=== PATIENT | female | born 1970 | race Caucasian/White ===

== ENCOUNTER 2018-04-22 23:39 | Emergency (ER) | payer OTHER, SELFPAY ==
--- NOTE | 2018-04-23 00:01 | ER ---
Nurse's Notes [facility] Name: Sammie Lux Age: 47 yrs Sex: Female : 1970 Arrival Date: 04/22/2018 Time: 23:40 Bed 14 Private MD: Nickie Lau F Diagnosis: Radiculopathy, lumbar region Presentation: 04/22 23:49 Presenting complaint: Patient states: I've had lower back pain that radiates down my tl2 right leg for 2 months and haven't been to the doctor. I also have this rash on my left leg. Transition of care: patient was not received from another setting of care. Onset of symptoms was January 2018. Risk Assessment: Do you want to hurt yourself or someone else? Patient reports no desire to harm self or others. Initial Sepsis Screen: Does the patient meet any 2 criteria? No. Patient's initial sepsis screen is negative. Does the patient have a suspected source of infection? No. Patient's initial sepsis screen is negative. Care prior to arrival: None. 23:49 Method Of Arrival: Ambulatory tl2 23:49 Acuity: AMIE 4 tl2 Triage Assessment: 23:51 General: Appears in no apparent distress. uncomfortable, Behavior is calm, cooperative, tl2 appropriate for age. Pain: Complains of pain in left low back and right low back Pain radiates to right leg. Musculoskeletal: Circulation, motion, and sensation intact. 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 - Social history:: Smoking status: Patient/guardian denies using tobacco. - Ebola Screening: : No symptoms or risks identified at this time. - Family history:: not pertinent. - Hospitalizations: : No recent hospitalization is reported. Screenin:52 Abuse screen: Denies threats or abuse. Nutritional screening: No deficits noted. tl2 Tuberculosis screening: No symptoms or risk factors identified. Fall Risk None identified. Assessment: 23:50 General: Appears in no apparent distress. well developed, well nourished, Behavior is rk2 calm, cooperative. 23:50 Neuro: Level of Consciousness is alert, obeys commands, Oriented to person, place, rk2 time, situation. Respiratory: Airway is patent Respiratory effort is even, unlabored, Respiratory pattern is regular, symmetrical. Derm: Skin is pink, warm \T\ dry. Rash noted that is on right leg. Vital Signs: 23:51 BP 150 / 96; Pulse 71; Resp 18; Temp 98(O); Pulse Ox 97% on R/A; Weight 68.04 kg; tl2 Height 5 ft. 0 in. (152.40 cm); Pain 8/10; 23:51 Body Mass Index 29.29 (68.04 kg, 152.40 cm) tl2 ED Course: 23:40 Patient arrived in ED. am2 23:40 Nickie Lau MD is Private Physician. am2 23:42 Gustavo Cody MD is Attending Physician. rn 23:50 Triage completed. tl2 23:51 Arm band placed on right wrist. tl2 23:52 Patient has correct armband on for positive identification. Bed in low position. Call tl2 light in reach. Side rails up X 1. 05/31 00:06 Camryn Osorio, MARIA is Primary Nurse. rk2 00:08 No provider procedures requiring assistance completed. Patient did not have IV access rk2 during this emergency room visit. Administered Medications: No medications were administered Outcome: 00:00 Discharge ordered by . rn 00:08 Discharged to home rk2 00:08 Discharged to home ambulatory. 00:08 Condition: good 00:08 Discharge instructions given to patient, Prescriptions given X 3. 00:09 Patient left the ED. rk2 Signatures: Gustavo Cody MD MD rn Knox, Taylor, RN RN tl2 Daily Jc 2 Camryn Osorio RN RN rk2
--- NOTE | 2018-04-23 00:01 | EDPHYS ---
Physician Documentation [facility] Name: Sammie Lux Age: 47 yrs Sex: Female : 1970 Arrival Date: 04/22/2018 Time: 23:40 Bed 14 Private MD: Nickie Lau F ED Physician Gustavo Cody HPI: 04/22 23:57 This 47 yrs old Female presents to ER via Ambulatory with complaints of Back rn Pain. 23:57 The patient presents with pain that is chronic. The symptoms are located in the low rn back. Onset: The symptoms/episode began/occurred 5 month(s) ago. The pain radiates to the right leg. Modifying factors: The patient symptoms are alleviated by OTC meds, the patient symptoms are aggravated by any movement, bending. Severity of symptoms: At their worst the symptoms were moderate, in the emergency department the symptoms have improved. The patient has experienced similar episodes in the past. Denies new injury, has xray order from November and wants to get it done now, no new trauma, + radiates down right leg, no bowel/bladder issues. . 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 - Social history:: Smoking status: Patient/guardian denies using tobacco. - Ebola Screening: : No symptoms or risks identified at this time. - Family history:: not pertinent. - Hospitalizations: : No recent hospitalization is reported. ROS: 23:57 Constitutional: Negative for fever, chills, and weight loss, Eyes: Negative for injury, rn pain, redness, and discharge, Cardiovascular: Negative for chest pain, palpitations, and edema, Respiratory: Negative for shortness of breath, cough, wheezing, and pleuritic chest pain, Abdomen/GI: Negative for abdominal pain, nausea, vomiting, diarrhea, and constipation, Back: + low back pain MS/Extremity: Negative for injury and deformity, Skin: Negative for injury, rash, and discoloration, Neuro: Negative for headache, weakness, numbness, tingling, and seizure. Exam: 23:57 Constitutional: This is a well developed, well nourished patient who is awake, alert, rn and in no acute distress. Back: No spinal tenderness. No costovertebral tenderness. Full range of motion. MS/ Extremity: Pulses equal, no cyanosis. Neurovascular intact. Full, normal range of motion. Equal circumference. Neuro: Awake and alert, GCS 15, oriented to person, place, time, and situation. Cranial nerves II-XII grossly intact. Motor strength 5/5 in all extremities. Sensory grossly intact. Cerebellar exam normal. Normal gait. Vital Signs: 23:51 BP 150 / 96; Pulse 71; Resp 18; Temp 98(O); Pulse Ox 97% on R/A; Weight 68.04 kg; tl2 Height 5 ft. 0 in. (152.40 cm); Pain 8/10; 23:51 Body Mass Index 29.29 (68.04 kg, 152.40 cm) tl2 MDM: 23:42 Patient medically screened. rn 23:57 Differential diagnosis: arthritis, chronic back pain, Osteoarthritis radiculopathy. rn Data reviewed: vital signs, nurses notes, and as a result, I will discharge patient. Counseling: I had a detailed discussion with the patient and/or guardian regarding: the historical points, exam findings, and any diagnostic results supporting the discharge/admit diagnosis, the need for outpatient follow up, to return to the emergency department if symptoms worsen or persist or if there are any questions or concerns that arise at home. Special discussion: I discussed with the patient/guardian in detail that at this point there is no indication for admission to the hospital. It is understood, however, that if the symptoms persist or worsen the patient needs to return immediately for re-evaluation. Further emergent ED testing is not indicated at this point in time. I discussed with the patient/guardian in detail the need to arrange with the PCP or specialist further outpatient testing, MRI. Administered Medications: No medications were administered Disposition: 04/23/18 00:00 Discharged to Home. Impression: Radiculopathy, lumbar region. - Condition is Stable. - Discharge Instructions: Lumbosacral Radiculopathy. - Prescriptions for Medrol (Efraín) 4 mg Oral Tablets, Dose Pack - take 1 tablet by ORAL route as directed - follow package instructions; 1 packet. Cyclobenzaprine 5 mg Oral Tablet - take 1 tablet by ORAL route 3 times per day As needed; 15 tablet. Bactroban 2 % Topical Ointment - Apply to affected area 1 application by TOPICAL route every 12 hours; 30 gram. - Medication Reconciliation Form, Thank You Letter, Antibiotic Education, Prescription Opioid Use form. - Follow up: Private Physician; When: As needed; Reason: Recheck today's complaints, Re-evaluation by your physician. - Problem is chronic. - Symptoms have improved. Signatures: Gustavo Cody MD MD rn Laura Souza RN RN tl2 Camryn Osorio RN RN rk2 Corrections: (The following items were deleted from the chart) 04/23 00:09 00:00 04/23/2018 00:00 Discharged to Home. Impression: Radiculopathy, lumbar region. rk2 Condition is Stable. Forms are Medication Reconciliation Form, Thank You Letter, Antibiotic Education, Prescription Opioid Use. Follow up: Private Physician; When: As needed; Reason: Recheck today's complaints, Re-evaluation by your physician. Problem is chronic. Symptoms have improved. rn
== END 2018-04-23 00:09 | disposition home or self-care (01) ==
LOC: ER 23:39
DX: M54.16 Radiculopathy, lumbar region (principal)
CPT/HCPCS: 99282

== ENCOUNTER 2023-03-28 18:43 | Emergency (ER) | payer OTHER ==
--- OUTSIDE RECORDS SUMMARY | 2023-03-28 18:46 | XMS REPORT | Continuity of Care Document ---
:1970 Author Organization Formerly [facility] t Address [address] [facility] [address] [place] [address] Care Team Providers Name Role Phone RACHEL SANCHEZ Primary Care Physician Unavailable SRAVANTHI BARBER Attending Clinician Unavailable RADHA HEIN Attending Clinician Unavailable Kiley Davalos Attending Clinician KILEY WOLFE Attending Clinician Unavailable Doctor Unassigned, [place] Attending Clinician Unavailable Radha Hein MD Attending Clinician Chiquis Goyal RN Attending Clinician Unavailable Only, Ang Db Test Attending Clinician Unavailable Irvin Galindo MD Attending Clinician IRVIN GALINDO Attending Clinician Unavailable Celia Parker PA-C Attending Clinician CELIA PARKER Attending Clinician Unavailable KATE AMOS Attending Clinician Unavailable Payers Payer Name Policy Type Policy Number Effective Date Expiration Date S [employer] [id number] 2019 NON-CONTRACT 00:00:00 GENERIC ALL SAVERS [id number] 2021 00:00:00 LETICIA O [id number] 2018 00:00:00 Problems Condition Condition Condition Status Onset Resolution Last Treating Co mments Source Name Details Category Date Date Treatment Clinician Date Ascending Ascending Disease Active Uni vers aorta aorta 2-16 [place] Primary Primary Disease Active Univers hypertensi hypertensi 2-16 it y of on on 00:00: [place] [facility] Chest Chest Disease Active Univers pain, pain, 2-16 ity of unspecifie unspecifie [place] type d type Medical Branch Irregular Irregular Disease Active Uni vers menstrual menstrual 6 ity of cycle cycle 00:00: Medical Branch Overweight Overweight Disease Active Overview : Univers 04-04 Formattin ity of 00:00: g of this note Medical might be Branch different from the original. 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 HSIL with colpo and biopsy- ROMERO II/ ROMERO II 2008LEEP procedure completed 05/20/2014 Needs annual pap smears DUB DUB Disease Active Overview: Univer s (dysfuncti (dysfuncti 02-22 Formattin ity of onal onal 00:00: g of this [place] uterine uterine note Medical bleeding) bleeding) might be Br anch different from the original. Prev. Referred for EMB by laura amador pt.did not follow up HTN HTN Disease Active Univers (hypertens (hypertens 4- it y of ion) ion) 00:00: Medical Branch Generalize Generalize Disease Active U nivers d anxiety d anxiety - ity of disorder disorder 00:00: Medical Branch Tubal Tubal Disease Active Overview: Univer s ligation ligation 02-22 Formattin ity of evaluation evaluation 00:00: g of this note Medical might be Branch different from the original. REcords received. Completed in 1989 Pain Pain Disease Active Univers pelvic pelvic 02-22 ity of 00:00: [place] 00 [facility] Branch Allergies, Adverse Reactions, Alerts Allergy Allergy Status Severity Reaction(s) Onset Inactive Treating Comm ents Source Name Type Date Date Clinician NO KNOWN Drug Active Univers ALLERGIE Class ity of S [facility] Social History Social Habit Start Date Stop Date Quantity Comments Source History SDOH University o f Alcohol Frequency [place] [facility] History SDOH University o f Alcohol Std Drinks [place] [facility] [place] History SDNV University o f Alcohol Binge [place] [facility] [place] Exposure to 2022-04-04 2022-04-14 Not sure [facility] SARS-CoV-2 (event) 00:00:00 18:37:00 [facility] Alcohol intake 2022-04-14 2022-04-14 0 /d University of 00:00:00 00:00:00 [facility] Alcohol Comment 2014-07-07 2014-07-07 on occassion Univers ity of 00:00:00 00:00:00 [facility] Sex Ass[birth year] At [birth year] Universit y of 00:00:00 00:00:00 [facility] Smoking Status Start Date Stop Date Source Never smoker [facility] Medications Ordered Filled Start Stop Current Ordering Indication Dosage Frequency Signature Comments Components Source Medication Medication Date Date Medication? Clinician (SIG) Name Name ketorolac No 30mg 30 mg, Unive rs (TORADOL) 04-15 Intramuscu ity of injection 01:00: 23:58 lar, ONCE, [place] 30 mg 00 :00 1 dose, On [facility] 04/14/22 at 2000, Routine cyclobenzap No 5mg 5 mg, Univ ers rine 04-14 Oral, ity of (FLEXERIL) 23:48: 23:58 ONCE, 1 [place] as tablet 5 mg 00 :00 dose, On [facility] 04/14/22 at 1900, Routine cyclobenzap Yes [id number] 5mg Take 1 Univers rine 5 mg - tablet by ity o f tablet 00:00: mouth [place] 00 every 8 Medical (eight) Branch hours as needed for Muscle Spasms. cyclobenzap 2021- No [id number] 5mg Take 1 Univers rine 5 mg 5-22 05-22 tablet by ity of tablet 00:00: 00:00 mouth [place] 00 :00 every 8 Medical (eight) Branch hours as needed for Muscle Spasms. hydroCHLORO 2021-0 Yes 12.5mg Take 12.5 Univers thiazide 2-16 mg by ity of 12.5 mg 14:04: mouth [place] capsule 44 daily. Medical Branch busPIRone 2021-0 Yes 15mg Take 15 mg Un anamaria 15 mg 2-16 by mouth 2 ity of tablet 14:04: (two) [place] 44 times Medical daily. Branch OMEPRAZOLE 2021-0 Yes Take by Univ ers ORAL 2-16 mouth. ity of 14:04: [place] [address] Medical Branch hydroCHLORO 2021-0 Yes 12.5mg Take 12.5 Univers thiazide 2-16 mg by ity of 12.5 mg 14:04: mouth [place] capsule 44 daily. Medical Branch busPIRone 2021-0 Yes 15mg Take 15 mg Un anamaria 15 mg 2-16 by mouth 2 ity of tablet 14:04: (two) [place] 44 times Medical daily. Branch OMEPRAZOLE 2021-0 Yes Take by Univ ers ORAL 2-16 mouth. ity of 14:04: [place] [address] Medical Branch hydroCHLORO 2021-0 Yes 12.5mg Take 12.5 Univers thiazide 2-16 mg by ity of 12.5 mg 14:04: mouth [place] capsule 44 daily. Medical Branch busPIRone 2021-0 Yes 15mg Take 15 mg Un anamaria 15 mg 2-16 by mouth 2 ity of tablet 14:04: (two) [place] 44 times Medical daily. Branch OMEPRAZOLE 2021-0 Yes Take by Univ ers ORAL 2-16 mouth. ity of 14:04: [place] [address] Medical Branch mupirocin 2 2020-0 Yes [id number] Apply to Univers % ointment 1-10 area(s) 3 ity of 00:00: (three) [place] 00 times Medical daily. Branch mupirocin 2 2020-0 Yes [id number] Apply to Univers % ointment 1-10 area(s) 3 ity of 00:00: (three) [place] 00 times Medical daily. Branch mupirocin 2 2020-0 Yes [id number] Apply to Univers % ointment 1-10 area(s) 3 ity of 00:00: (three) [place] 00 times Medical daily. Branch amLODIPine 2020-0 Yes 10mg Take 10 mg U nivers 10 mg 2-28 by mouth ity of tablet 14:13: daily. [place] [address] Medical Branch hydrALAZINE 2020-0 Yes 10mg Take 10 mg Univers 10 mg 2-28 by mouth ity of tablet 14:13: every 6 [place] [address] (six) Medical hours. Branch metoprolol 2020-0 Yes 50mg Take 50 mg U nivers succinate 2-28 by mouth ity of XL 50 mg 24 14:13: [place]. [place] hr tablet Medical Branch amLODIPine 2020-0 Yes 10mg Take 10 mg U nivers 10 mg 2-28 by mouth ity of tablet 14:13: daily. [address] Branch hydrALAZINE 2020-0 Yes 10mg Take 10 mg Univers 10 mg 2-28 by mouth ity of tablet 14:13: every 6 [place] [address] (six) Medical hours. Branch metoprolol 2020-0 Yes 50mg Take 50 mg U nivers succinate 2-28 by mouth ity of XL 50 mg 24 14:13: daily. [facility] [place] [facility] hr tablet Medical Branch amLODIPine 2020-0 Yes 10mg Take 10 mg U nivers 10 mg 2-28 by mouth ity of tablet 14:13: daily. [address] Branch hydrALAZINE 2020-0 Yes 10mg Take 10 mg Univers 10 mg 2-28 by mouth ity of tablet 14:13: every 6 [place] [address] (six) Medical hours. Branch metoprolol 2020-0 Yes 50mg Take 50 mg U nivers succinate 2-28 by mouth ity of XL 50 mg 24 14:13: [place]. [place] tablet 11 Medical Branch ondansetron 2019-0 Yes [id number] 4mg Take 1 Univers (ZOFRAN) 4 1-29 tablet by ity of mg tablet 00:00: mouth [place] [id number] every 8 Medical (eight) Branch hours as needed for Nausea and Vomiting (N/V). traMADOL 2019-0 Yes [id number] 50mg Take 1 Uni vers (ULTRAM) 50 1-29 tablet by ity of mg tablet 00:00: mouth [place] 00 every 6 Medical (six) Branch hours as needed for Pain (scale 7-10). pantoprazol 2019-0 Yes [id number] 40mg Take 1 Univers e 1-29 tablet by ity of (PROTONIX) 00:00: mouth [place] 40 mg EC 00 daily. Medical tablet Branch ondansetron Yes [id number] 4mg Take 1 Univers (ZOFRAN) 4 1-29 tablet by ity of mg tablet 00:00: mouth [place] 00 every 8 Medical (eight) Branch hours as needed for Nausea and Vomiting (N/V). traMADOL Yes [id number] 50mg Take 1 Uni vers (ULTRAM) 50 1-29 tablet by ity of mg tablet 00:00: mouth [place] 00 every 6 Medical (six) Branch hours as needed for Pain (scale 7-10). pantoprazol Yes [id number] 40mg Take 1 Univers e 1-29 tablet by ity of (PROTONIX) 00:00: mouth [place] 40 mg EC 00 daily. Medical tablet Branch ondansetron Yes [id number] 4mg Take 1 Univers (ZOFRAN) 4 1-29 tablet by ity of mg tablet 00:00: mouth [place] 00 every 8 Medical (eight) Branch hours as needed for Nausea and Vomiting (N/V). pantoprazol Yes [id number] 40mg Take 1 Univers e 1-29 tablet by ity of (PROTONIX) 00:00: mouth [place] 40 mg EC 00 daily. Medical tablet Branch traMADOL 2021- No [id number] 50mg Take 1 Un anamaria (ULTRAM) 50 1-29 05-22 tablet by it y of mg tablet 00:00: 00:00 mouth [place] 00 :00 every 6 Medical (six) Branch hours as needed for Pain (scale 7-10). traMADOL Yes 50mg Take 1 Univers (ULTRAM) 50 9-19 tablet by ity of mg tablet 00:00: mouth [place] 00 every 6 Medical (six) Branch hours as needed for Pain (scale 4-6). traMADOL 2017-0 Yes 50mg Take 1 Univers (ULTRAM) 50 9-19 tablet by ity of mg tablet 00:00: mouth [place] 00 every 6 Medical (six) Branch hours as needed for Pain (scale 4-6). traMADOL 2017-0 2021- No 50mg Take 1 Univer s (ULTRAM) 50 9-19 05-22 tablet by it y of mg tablet 00:00: 00:00 mouth [place] 00 :00 every 6 Medical (six) Branch hours as needed for Pain (scale 4-6). Immunizations Ordered Filled Immunization Date Status Comments Sour e Immunization Name Name Influenza Virus 2019-08-24 Completed Universit y of Vaccine Quad .5 mL 00:00:00 [place] Medical IM 6+ MO Branch Influenza Virus 2019-08-24 Completed Universit y of Vaccine Quad .5 mL 00:00:00 [place] [facility] IM 6+ MO Branch Influenza Virus 2019-08-24 Completed Universit y of Vaccine Quad .5 mL 00:00:00 [place] Medical IM 6+ MO Branch TDAP 2014-02-22 Completed University 00:00:00 [facility] TDAP 2014-02-22 Completed University 00:00:00 [facility] TDAP 2014-02-22 Completed [facility] 00:00:00 [facility] Vital Signs Vital Name Observation Time Observation Value Comments Source Systolic blood 2022-04-14 23:38:00 136 mm[Hg] Univer sity of pressure [facility] Diastolic blood 2022-04-14 23:38:00 84 mm[Hg] Unive rsity of [facility] Heart rate 2022-04-14 23:38:00 62 /min [facility] Body temperature 2022-04-14 23:38:00 36.94 K[facility] Respiratory rate 2022-04-14 23:38:00 18 /min [facility] Body height 2022-04-14 23:38:00 154.9 cm [facility] Body weight 2022-04-14 23:38:00 70.308 kg [facility] BMI 2022-04-14 23:38:00 29.29 kg/m2 [facility] Oxygen saturation in 2022-04-14 23:38:00 97 /min [facility] Arterial blood by [facility] Pulse oximetry Branch Systolic blood 2022-01-09 20:01:00 113 mm[Hg] Univer sity of pressure [facility] Diastolic blood 2022-01-09 20:01:00 67 mm[Hg] Unive rsity of pressure [facility] Heart rate 2022-01-09 20:01:00 77 /min [facility] Body height 2022-01-09 20:01:00 154.9 cm [facility] Body weight 2022-01-09 20:01:00 67.586 kg [facility] BMI 2022-01-09 20:01:00 28.15 kg/m2 [facility] Oxygen saturation in 2022-01-09 20:01:00 97 /min [facility] Arterial blood by [facility] Pulse oximetry Branch Procedures Procedure Date / Time Performed Performing Clinician [facility] e CONSENT/REFUSAL FOR 2022-04-14 23:27:17 Doctor Unassigned, No Un [facility] DIAGNOSIS AND Name [facility] TREATMENT EKG-12 LEAD 2022-01-09 20:07:54 Radha Hein [facility] Encounters Start End Encounter Admission Attending Care Care Encounter Source Date/Time Date/Time Type Type Clinicians Facility Department ID 2021-09-22 Emergency [facility] [id number] [facility]21 Emergency [facility] [id number] Univers 10:34:40 [facility] 2023-02-28 2023-02-28 Outpatient R BARBER, [facility] [id number] Univers 13:00:00 13:00:00 SENDIL [facility] 2023-01-13 2023-01-13 Outpatient R MELVINA, [facility] [id number] Univers 14:00:00 14:00:00 [facility]23-[facility]-13 2023-01-13 Outpatient R MELVINA, [facility] [id number] Univers 14:00:00 14:00:00 RADHA silverman o [facility] 2023-01-13 2023-01-13 Outpatient R MELVINA, [facility] [id number] Univers 14:00:00 14:00:00 [facility] 2022-04-14 2022-04-14 Emergency [place], [facility] [[email or web address]] [id number] Univers 18:40:00 19:19:00 Kiley TELLEZ [id number] [place] [id number] [facility] [phone] [facility] 084 Branch 2022-04-14 2022-04-14 Emergency X RIDDLE, [facility] [[email or web address]] ERT [id number] Univers 18:40:00 19:19:00 CHRISTOPHER it y of [facility] 2022-04-14 2022-04-14 Orders Doctor CELIA [id number] Univers 00:00:00 00:00:00 Only Unassigned, LENARD [id number] [facility] [id number] [place] [phone] [facility] 009 Branch 2022-03-22 2022-03-22 Outpatient R MELVINA, [facility] [id number] Univers 10:00:00 10:00:00 RADHA silvermany o [facility] 2022-02-01 2022-02-01 Outpatient R MELVINA, [facility] [id number] Univers 10:00:00 10:00:00 WILFRIDMOHIT andray o [facility] 2022-02-01 2022-02-01 Outpatient R MELVINA, [facility] [id number] Univers 10:00:00 10:00:00 MORISJIGAR silvermany o [facility] 2022-01-10 2022-01-10 Telephone Melvina, [facility] [[email or web address]] [id number] Univers 00:00:00 00:00:00 Radha TELLEZ [id number] ity [facility] [id number] [phone] Ri dical NAL 059 Branch [facility] 2022-01-09 2022-01-09 Outpatient R MELVINA, [facility] [id number] Univers 13:40:00 14:28:03 WILFRIDMOHIT ity o [facility] 2022-01-09 2022-01-09 Office Melvina, [facility] [[email or web address]] [id number] Univers 13:40:00 14:28:03 Visit Radha TELLEZ [id number] ity [facility] [id number] [id number] Ri dical NAL 059 Branch [facility] 2022-01-09 2022-01-09 Outpatient R MELVINA [facility] [id number] Univers 13:40:00 14:28:03 RADHA ity o f [facility] 2022-01-09 2022-01-09 Orders Doctor CELIA [id number] Univers 00:00:00 00:00:00 Only Unassigned, LENARD [id number] [facility] 4.2.7.2.686 [place] as [phone] [facility] 009 [place] 2021-12-15 2021-12-15 Telephone Jay JayCELIA [id number] Univers 00:00:00 00:00:00 Chiquis LENARD [id number] [facility] 4.2.7.2.686 [place] as [phone] [facility] 019 [place] 2021-12-14 2021-12-14 Laboratory Only, Ang Db Test [facility] [[email or web address]] 1.2.8 [id number] [id number] Univers 15:30:00 15:45:00 Only Mateo Irvin ustyme 350.1.13.10 ity of [facility] 4.2.7.2.686 [place] as [place]?BLEA [phone] [address] OFFICE [facility] 2021-12-14 2021-12-14 [facility] [id number] Univers 15:30:00 15:30:00 [facility] 2021-12-14 2021-12-14 [facility] [id number] Univers 15:30:00 15:09:17 [facility] 2021-12-10 2021-12-10 Laboratory Only, Ang Db Test [facility] [[email or web address]] 1.2.8 [id number] [id number] Univers 11:30:00 11:45:00 Only Celia Parker [facility] [id number] ity of [facility] 4.2.7.2.686 [place]?BLEA [phone] [address] 2021-12-10 2021-12-10 Outpatient R SAAD [facility] [id number] Univers 11:30:00 11:30:00 CELIA hernandez [facility] [place] [facility] 2021-12-10 2021-12-10 Outpatient R SAAD [facility] [id number] Univers 11:30:00 11:05:01 CELIA hernandez [facility] [place] [facility] 2021-12-10 2021-12-10 Orders Doctor CELIA [id number] Univers 00:00:00 00:00:00 Only Unassigned, L[facility] 4.2.7.2.686 [place] [phone] [address] 2021-12-05 2021-12-05 [facility] [id number] Univers 15:30:00 15:30:00 SRAVANTHI isi [facility] [place] [facility] 2021-12-03 2021-12-03 Orders Doctor CELIA [id number] Univers 00:00:00 00:00:00 Only Unassigned, LENARD [facility].13.10 [facility] [id number] [place] [phone] [address] 2020-01-26 2020-01-26 [facility] [id number] Univers 11:00:00 11:00:00 KATE hernandez [facility] [place] [facility] 2020-01-26 2020-01-26 Outpatient Del AMOS [facility] [id number] Univers 10:45:00 10:45:00 KATE hernandez [facility] [place] [facility] 2020-01-21 2020-01-21 Outpatient Del AMOS [facility] [id number] Univers 13:40:00 13:40:00 KATE isi [facility] [place] [facility] Results This patient has no known results.
[2023-03-28] MEDS ORDERED: KETOROLAC 30 MG/ML INJ ONE (19:57)
[2023-03-28] MEDS ORDERED: dexAMETHasone 10 MG/ML VIAL ONE (19:57)
--- NOTE | 2023-03-28 21:02 | RAD REPORT ---
EXAM DESCRIPTION: RAD - Hip Left 2 View - 03/28/2023 8:36 pm CLINICAL HISTORY: PAIN COMPARISON: No comparisons FINDINGS/IMPRESSION: No acute fracture. No malalignment. No significant focal degenerative changes.
--- NOTE | 2023-03-28 21:02 | RAD REPORT ---
EXAM DESCRIPTION: RAD - Pelvis - 03/28/2023 8:36 pm CLINICAL HISTORY: left hip pain COMPARISON: No comparisons FINDINGS/IMPRESSION: No acute fracture. No malalignment. No significant focal degenerative changes.
--- NOTE | 2023-03-28 21:03 | RAD REPORT ---
EXAM DESCRIPTION: RAD - Lumbar Spine 3 Views - 03/28/2023 8:36 pm CLINICAL HISTORY: PAIN COMPARISON: Lumbar Spine 3 Views dated 04/24/2018; LUMBAR SPINE 3 VIEWS dated 01/15/2008 FINDINGS: No acute fracture. Grade 1 anterolisthesis of L4 on L5 . Mild disc height loss at L3-4, L4 -5, and L5-S1. IMPRESSION: No acute osseous abnormality involving the lumbar spine.
--- NOTE | 2023-03-28 21:20 | EDPHYS ---
Physician Documentation [facility] Name: Sammie Lux Age: 52 yrs Sex: Female : 1970 Arrival Date: 03/28/2023 Time: 18:43 Bed 13 Private MD: JUAN Physician Devan Oliver HPI: 03/28 19:30 This 52 yrs old Female presents to ER via Ambulatory with complaints of Back Pain. cp 19:30 The patient presents with pain that is acute, with no known mechanism of injury. The cp symptoms are located in the low back. Onset: The symptoms/episode began/occurred 2 week(s) ago. The pain radiates to the left hip and left groin and left upper leg. Associated signs and symptoms: Pertinent negatives: abdominal pain, constipation, dysuria, fever, incontinence, numbness, tingling, weakness. The problem was sustained from unknown cause. Modifying factors: the patient symptoms are aggravated by movement, standing, walking. Severity of symptoms: in the emergency department the symptoms are unchanged, despite home interventions. 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 - Social history:: Smoking status: Patient denies any tobacco usage or history of. ROS: 19:35 Constitutional: Negative for body aches, chills, fever, poor PO intake. cp 19:35 Eyes: Negative for injury, pain, redness, and discharge. cp 19:35 ENT: Negative for drainage from ear(s), ear pain, sore throat, difficulty swallowing, difficulty handling secretions. 19:35 Cardiovascular: Negative for chest pain, edema, palpitations. 19:35 Respiratory: Negative for cough, shortness of breath, wheezing. 19:35 Abdomen/GI: Negative for abdominal pain, nausea, vomiting, and diarrhea, constipation, bowel incontinence. 19:35 Back: Positive for pain at rest, pain with movement, of the left low back. 19:35 : Negative for urinary symptoms, bladder incontinence, vaginal bleeding. 19:35 MS/extremity: Positive for pain, of the left hip and left groin and left upper leg, Negative for paresthesias. 19:35 Skin: Negative for rash. 19:35 Neuro: Negative for altered mental status, headache, numbness, tingling, weakness. 19:35 All other systems are negative. Exam: 19:40 Constitutional: The patient appears in no acute distress, alert, awake, non-toxic, well cp developed, well nourished, uncomfortable. 19:40 Head/Face: Normocephalic, atraumatic. cp 19:40 Eyes: Periorbital structures: appear normal, Conjunctiva: normal, no exudate, no injection, Sclera: no appreciated abnormality, Lids and lashes: appear normal, bilaterally. 19:40 ENT: External ear(s): are unremarkable, Nose: is normal, Mouth: Lips: moist, Oral mucosa: pink and intact, moist, Posterior pharynx: is normal, airway is patent, no erythema, no exudate. 19:40 Neck: ROM/movement: is normal, is supple, without pain, no range of motions limitations. 19:40 Chest/axilla: Inspection: normal. 19:40 Cardiovascular: Rate: normal, Rhythm: regular, Edema: is not appreciated, JVD: is not appreciated. 19:40 Respiratory: the patient does not display signs of respiratory distress, Respirations: normal, no use of accessory muscles, no retractions, labored breathing, is not present, Breath sounds: are clear throughout, no decreased breath sounds, no stridor, no wheezing. 19:40 Abdomen/GI: Inspection: abdomen appears normal, Palpation: abdomen is soft and non-tender, in all quadrants. 19:40 Back: pain, that is moderate, ROM is painful, with all movement, CVA tenderness, is absent, vertebral tenderness, is not appreciated, Straight leg raises: left lower extremity illicits pain. 19:40 Skin: cellulitis, is not appreciated, no rash present. 19:40 Neuro: Orientation: to person, place \T\ time. Mentation: is normal, Motor: moves all fours, strength is normal, Sensation: is normal, Deep tendon reflexes are 2+ (normal) in the right patellar, right Achilles, left patellar and left Achilles. Vital Signs: 19:10 BP 128 / 93; Pulse 68; Resp 16; Temp 98.5(O); Pulse Ox 98% on R/A; Weight 68.04 kg; vg1 Height 5 ft. 1 in. ; Pain 8/10; 21:51 BP 128 / 77; Pulse 68; Resp 18; Temp 97(TE); Pulse Ox 99% on R/A; kl 19:10 Body Mass Index 28.34 (68.04 kg, 154.94 cm) vg1 19:10 Pain Scale: Adult vg1 MDM: 19:19 Patient medically screened. tarik 19:50 Differential diagnosis: Osteomyelitis Osteoporosis Pyelonephritis spinal injury, cp Ureterolithiasis sciatica, cauda equina, spinal stenosis, disc disease. 21:18 Data reviewed: vital signs, nurses notes, lab test result(s), radiologic studies, plain cp films. 21:18 I considered the following discharge prescriptions or medication management in the cp emergency department Medications were administered in the Emergency Department. See MAR. Care significantly affected by the following chronic conditions: Hypertension. Counseling: I had a detailed discussion with the patient and/or guardian regarding: the historical points, exam findings, and any diagnostic results supporting the discharge/admit diagnosis, lab results, radiology results, the need for outpatient follow up, a family practitioner, to return to the emergency department if symptoms worsen or persist or if there are any questions or concerns that arise at home. Response to treatment: the patient's symptoms have markedly improved after treatment, and as a result, I will discharge patient. 03/28 19:48 Order name: XRAY Lumbar Spine (3 Views) cp 03/28 19:48 Order name: XRAY Pelvis cp 03/28 19:48 Order name: XRAY Hip LEFT 2 view cp Administered Medications: 19:55 Drug: Ketorolac IM 30 mg Route: IM; Site: left ventrogluteal; kl 20:45 Follow up: Response: No adverse reaction; Marked relief of symptoms kl 19:55 Drug: Dexamethasone IM 10 mg Route: IM; Site: left ventrogluteal; kl 20:44 Follow up: Response: No adverse reaction; Marked relief of symptoms kl Disposition Summary: 03/28/23 21:19 Discharge Ordered Location: Home cp Problem: new cp Symptoms: have improved cp Condition: Stable cp Diagnosis - Sciatica, left side cp Followup: cp - With: Private Physician - When: 2 - 3 days - Reason: Recheck today's complaints Discharge Instructions: - Discharge Summary Sheet cp - Sciatica cp - Back Exercises cp Forms: - Medication Reconciliation Form cp - Thank You Letter cp - Antibiotic Education cp - Prescription Opioid Use cp - Work release form as6 Prescriptions: - Lidoderm 5 % Topical adhesive patch, medicated - apply 1 patch by TOPICAL route daily As needed leave on most painful area for cp up to 12 hrs; 10 patch; Refills: 0, Product Selection Permitted - Cyclobenzaprine 10 mg Oral Tablet - take 1 tablet by ORAL route every 8 hours As needed; 30 tablet; Refills: 0, cp Product Selection Permitted - Medrol (Efraín) 4 mg Oral Tablets, Dose Pack - take 1 tablet by ORAL route as directed - follow package instructions; 1 cp packet; Refills: 0, Product Selection Permitted Signatures: Dispatcher [employer] Charity Peterson, Devan Enriquez RN, MD MD cha Page, Corey PA Evie Terrazas cp, RN RN vg1
--- NOTE | 2023-03-28 21:20 | ER ---
Nurse's Notes [facility] Name: Sammie Lux Age: 52 yrs Sex: Female : 1970 Arrival Date: 03/28/2023 Time: 18:43 Bed 13 Private MD: Diagnosis: Sciatica, left side Presentation: 03/28 19:10 Chief complaint: Patient states: back pain x 2 weeks, worse today; stated left lower vg1 back pain that radiates down left groin and left leg; unable to bend over or squat. Coronavirus screen: Vaccine status: Patient reports receiving the 2nd dose of the covid vaccine. Client denies travel out of the [place] in the last 14 days. Ebola Screen: Patient negative for fever greater than or equal to 101.5 degrees Fahrenheit, and additional compatible Ebola Virus Disease symptoms Patient denies exposure to infectious person. Patient denies travel to an Ebola-affected area in the 21 days before illness onset. Initial Sepsis Screen: Does the patient meet any 2 criteria? No. Patient's initial sepsis screen is negative. Does the patient have a suspected source of infection? No. Patient's initial sepsis screen is negative. Risk Assessment: Do you want to hurt yourself or someone else? Patient reports no desire to harm self or others. Onset of symptoms was March 14, 2023. 19:10 Method Of Arrival: Ambulatory vg1 19:10 Acuity: AMIE 3 vg1 Triage Assessment: 19:12 General: Appears uncomfortable, Behavior is cooperative. Pain: Complains of pain in vg1 back Pain radiates to left leg Pain currently is 8 out of 10 on a pain scale. Neuro: Reports numbness paresthesias in left leg. Musculoskeletal: Circulation, motion, and sensation intact. 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 - Social history:: Smoking status: Patient denies any tobacco usage or history of. Screenin:49 [facility] ED Fall Risk Assessment (Adult) History of falling in the last 3 months, kl including since admission No falls in past 3 months (0 pts) Confusion or Disorientation No (0 pts) Intoxicated or Sedated No (0 pts) Impaired Gait No (0 pts) Mobility Assist Device Used No (0 pt) Altered Elimination No (0 pt) Score/Fall Risk Level 0 - 2 = Low Risk. Abuse screen: Denies threats or abuse. Nutritional screening: No deficits noted. Tuberculosis screening: No symptoms or risk factors identified. Assessment: 21:49 Reassessment: Patient appears in no apparent distress at this time. Patient is alert, kl oriented x 3, equal unlabored respirations, skin warm/dry/pink. Patient denies pain at this time. Patient states feeling better. Patient states symptoms have improved. Neuro: No deficits noted. Vital Signs: 19:10 BP 128 / 93; Pulse 68; Resp 16; Temp 98.5(O); Pulse Ox 98% on R/A; Weight 68.04 kg; vg1 Height 5 ft. 1 in. ; Pain 8/10; 21:51 BP 128 / 77; Pulse 68; Resp 18; Temp 97(TE); Pulse Ox 99% on R/A; kl 19:10 Body Mass Index 28.34 (68.04 kg, 154.94 cm) vg1 19:10 Pain Scale: Adult vg1 ED Course: 18:43 Patient arrived in ED. rg4 19:12 Triage completed. vg1 19:12 Arm band placed on. vg1 19:13 Devan Beck PA is PHCP. cp 19:13 Devan Oliver MD is Attending Physician. cp 20:38 XRAY Lumbar Spine (3 Views) In Process Unspecified. EDMS 20:38 XRAY Pelvis In Process Unspecified. EDMS 20:38 XRAY Hip LEFT 2 view In Process Unspecified. EDMS 21:50 Patient has correct armband on for positive identification. kl 21:50 No provider procedures requiring assistance completed. Patient did not have IV access kl during this emergency room visit. Administered Medications: 19:55 Drug: Ketorolac IM 30 mg Route: IM; Site: left ventrogluteal; kl 20:45 Follow up: Response: No adverse reaction; Marked relief of symptoms kl 19:55 Drug: Dexamethasone IM 10 mg Route: IM; Site: left ventrogluteal; kl 20:44 Follow up: Response: No adverse reaction; Marked relief of symptoms kl Medication: 21:51 VIS not applicable for this client. Outcome: 21:19 Discharge ordered by . scooter 21:50 Discharged to home ambulatory. kl 21:50 Condition: stable 21:50 Discharge instructions given to patient, Instructed on discharge instructions, follow up and referral plans. medication usage, Demonstrated understanding of instructions, follow-up care, medications, Prescriptions given X 3. 21:51 Patient left the ED. Signatures: Dispatcher [employer] EDMS Charity Toure RN RN Devan Anderson PA PA cp Garcia, Rubi rg4 Evie Casanova RN RN vg1 Corrections: (The following items were deleted from the chart) 19:15 19:12 LMP N/A - Hysterectomy vg1 vg1
[2023-03-28 21:58] VITALS: BP 128/77; TEMP 97; O2SAT 99
== END 2023-03-28 21:51 | disposition home or self-care (01) ==
LOC: ER 18:43
DX: M54.32 Sciatica, left side (principal); I10 Essential (primary) hypertension
CPT/HCPCS: 72100; 72170; 73502; 96372; 99284; J1100